=== PATIENT | female | born 1980 | race Caucasian/White ===

== ENCOUNTER 2018-04-19 12:59 | Day surgery (SDC) | payer BC ==
[~2018-04-19] VITALS: Ht 165.1 cm; Wt 103.0 kg
[~2018-04-19 12:59] MED LIST: ERGO500027 PO; HYDROmorphone 2 MG/ML VIAL IV PRN; IV RINGERS,LACTATED 1000ML 1,000 ML IV SCH; LACT1CAP8 PO; LIDOCAINE 1% PF 2 ML VIAL. ID PRN; METF500T16 PO; MORPHINE SULFATE 2 MG/ML VIAL. IV PRN; ONDANSETRON PF 4 MG/2 ML VIAL. IV PRN; PROCHLORPERAZINE 10 MG/2 ML VIAL. IV PRN; fentaNYL PF VIAL 100 MCG/2 ML VIAL IV PRN
[2018-04-19] MEDS ORDERED: ONDANSETRON PF 4 MG/2 ML VIAL. ONE (13:15)
[2018-04-19] MEDS ORDERED: fentaNYL PF VIAL 100 MCG/2 ML VIAL ONE (13:15)
[2018-04-19] MEDS ORDERED: DEXAMETHASONE SOD PHOS 20 MG/5 ML VIAL. ONE (13:15)
[2018-04-19] MEDS ORDERED: PROPOFOL 20 ML IV ONE ×2 (13:15→14:08)
[2018-04-19] MEDS ORDERED: MIDAZOLAM HCL/PF 2 MG/2 ML VIAL. ONE (13:16)
[2018-04-19] MEDS ORDERED: BUPIVAC MPF-EPI 0.5%-1:200000 30 ML VIAL. ONE (13:33)
[2018-04-19] MEDS ORDERED: ISOSULFAN BLUE 50 MG/5 ML VIAL. SQ ONE (13:33)
--- NOTE | 2018-04-19 14:27 | PDOC4 ---
Operative Note Operative Note Date: 04/19/2018 Preoperative diagnosis: Left axillary adenopathy Postoperative diagnosis: Same Procedure: Left axillary lymph node dissection Surgeon: Velasquez Specimen: Left axillary lymph nodes Dictation: Patient is a 37-year-old female who's noticed an enlarging mass in her left axilla ultrasound of this area showed multiple enlarged lymph nodes procedure of left axillary node dissection was explained to the patient detail was benefits were also discussed including bleeding infection alternatives to this procedure also discussed with patient seemed understanding gave both verbal and written consent had procedure performed. Patient was taken to the operating room placed in supine position general anesthesia was initiated once patient was asleep and intubated her left axilla was prepped and draped usual sterile fashion using ChloraPrep and area over the mass was injected with 0.25 percent Marcaine with epinephrine incisions made with 10 blade scalpel was carried down through the subcutaneous tissues elect cautery by hemostasis down into the axilla. 2 very large lymph nodes were encountered these were excised sharply with electrocautery and sent fresh to pathology. Wound was then closed in 2 layers a deep layer running 3-0 Vicryl and the skin was approximate 4 septic Monocryl Mastisol Steri-Strips and island dressing were applied. Patient was waken next made in the operating room taken recovery in stable condition all sponge instrument needle counts listed as correct estimated blood loss 5 mL NICKIE RUIZ MD Apr 19, 2018 14:27
--- NOTE | 2018-04-19 14:28 | DISCH ---
DISCHARGE INSTRUCTIONS Condition on Discharge Condition on Discharge: Stable Activity After Discharge Activity Instructions for Disc: Avoid exertion Diet after Discharge Diet after Discharge: Regular Wound Incision Care Other wound/incision instructi: May shower in 24 hours Contacting the after DC Call your doctor for: If your condition worsens Follow-Up Follow up with: Dr. Ruiz in 2 weeks NICKIE RUIZ MD Apr 19, 2018 14:28
[2018-04-19] MEDS: fentaNYL PF VIAL 100 MCG/2 ML VIAL IV PRN ×2 (15:09→15:25)
[2018-04-19] MEDS ORDERED: HYDROcodone/APAP 5/325MG 1 TAB TABLET PO ONE (15:15)
[2018-04-19 15:26] LABS: U PREG PATIENT NEGATIVE (NEG)
[2018-04-19] MEDS ORDERED: HYDR-971 PO (15:39)
[2018-04-19 16:00] VITALS: BP 166/81
--- NOTE | 2018-04-27 10:10 | PATHOLOGY ---
[facility] Accession Number: [id number] . 01 Material submitted: . PART A: FRESH- LEFT AXILLARY CONTENTS #1 PART B: FRESH- LEFT AXILLARY CONTENTS #2 . 01 Clinical history: . Axillary adenopathy . 02 Diagnosis: A. Lymph node and adipose tissue, left axillary contents #1: - Extensive fatty replacement and reactive changes of lymph node with focal anthracotic pigment deposition. . B. Lymph node and adipose tissue, left axillary contents #2: - Extensive fatty replacement and reactive changes of lymph node with focal anthracotic pigment deposition. . (JAYM:michelle; 04/20/2018) MBR/04/20/2018 . 02 Comment: Sections of the left axillary contents appear similar and reveal lymph nodes showing extensive fatty replacement. The remaining lymphoid parenchyma shows reactive changes. There are several scattered lymphoid follicles present within the cortex containing reactive germinal centers. There are foci of paracortical hyperplasia. There is focal sinus histiocytosis and anthracotic pigment deposition. . A portion of each lymph node is submitted together for lymphocyte marker studies by flow cytometry. . T-cells comprise 82% of lymphoid cells and show a CD4/CD8 ratio of 5.5. NK-cells comprise 1% of lymphoid cells. Mature B-cells comprise 16% of lymphoid cells and are polyclonal with a kappa:lambda ratio of 1.4. There is no flow immunophenotypic evidence of a B-cell or T-cell lymphoproliferative disorder. . The morphologic and immunophenotypic findings are supportive of the diagnosis of extensive fatty replacement and reactive changes of lymph node. There is no evidence of malignancy. (JAYM:michelle:[place]; 04/20/2018) . 02 Electronically signed: . Ector Mckenna MD, Pathologist NPI- [id number] . 01 Gross description: . A. Received fresh, labeled, "Ellen Thompson - Left axillary contents #1" is an elongated segment of yellow-red fatty tissue measuring up to 5.0 x 2.0 x 1.0 cm in greatest dimension. Sectioning reveals an eccentrically-located pale yellowish-kinsey rubbery lymph node measuring up to 2.0 cm in greatest dimension. Sectioning shows partial fatty replacement of lymph node with a focal rim of lymph node parenchyma showing mota-black anthracotic pigmentation. Two Touch Preps are prepared and submitted for H and E staining. A herbicide service sales representative portion of the node is submitted in RPMI for lymphocyte marker studies by flow cytometry. The remainder of the lymph node is submitted for microscopy as A1 and A2. . B. Received fresh, labeled, "Parkerchot Ellen - Left axillary contents #2" is a segment of yellow-red fatty tissue measuring up to 2.5 x 2.5 x 1.1 cm. The specimen is serially sectioned. Sectioning reveals a partially fatty replaced pale yellow-kinsey lymph node with a focal rim of lymph node parenchyma showing mota-black anthracotic pigmentation. This lymph node appears to measure up to approximately 1.3 cm in greatest dimension. Two Touch Preparations are prepared and submitted for H and E staining. A herbicide service sales representative portion of lymph node is submitted together with a portion of lymph node from specimen A for lymphocyte marker studies by flow cytometry. The remainder of the lymph node is submitted for microscopy as B1 and B2. . (JPM:mml; 04/19/18) SHS/SHS . 02 Pathologist provided ICD-10: R59.0 . 02 CPT . 400755, 353714 Specimen Comment: A courtesy copy of this report has been sent to Specimen Comment: [phone], . Specimen Comment: Report sent to / DR ANNE Specimen Comment: A duplicate report has been generated due to demographic updates. Performed at: 01 [facility] [address], [place] [id number] MD Kwesi Chris MD Phone: [phone] Performed at: 02 [facility] [address] [place], [place] [id number] MD Ector Mckenna MD Phone: [phone]
== END 2018-04-19 16:26 | disposition home or self-care (01) ==
LOC: SURG 12:59
PROVIDERS: ATTEND Surgery
DX: R59.0 Localized enlarged lymph nodes (principal); E78.00 Pure hypercholesterolemia, unspecified; F31.9 Bipolar disorder, unspecified; Z87.891 Personal history of nicotine dependence; Z98.890 Other specified postprocedural states; Z98.51 Tubal ligation status; Z79.899 Other long term (current) drug therapy
CPT/HCPCS: 38525; 81025; 88184; 88185; 88305; A7015; J0690; J1100; J2250; J2405; J2704; J3010; J3490; Q9968

== ENCOUNTER 2018-09-15 09:16 | Emergency (ER) | payer BC ==
[~2018-09-15] VITALS: Ht 165.1 cm; Wt 108.9 kg
[~2018-09-15 09:16] MED LIST changes: +HYDR-3164 PO; -HYDROmorphone 2 MG/ML VIAL IV PRN; -IV RINGERS,LACTATED 1000ML 1,000 ML IV SCH; -LIDOCAINE 1% PF 2 ML VIAL. ID PRN; -MORPHINE SULFATE 2 MG/ML VIAL. IV PRN; -ONDANSETRON PF 4 MG/2 ML VIAL. IV PRN; -PROCHLORPERAZINE 10 MG/2 ML VIAL. IV PRN; -fentaNYL PF VIAL 100 MCG/2 ML VIAL IV PRN
--- NOTE | 2018-09-15 09:37 | PHYS DOC ---
Past Medical History Past Medical History: Other Additional Past Medical Histor: PCOS Past Surgical History: Appendectomy, Hysterectomy, Tonsillectomy, Other Additional Past Surgical Histo: lymphnodectomy, Alcohol Use: Occasionally Drug Use: None Adult General Chief Complaint Chief Complaint: ABDOMINAL PAIN HPI HPI Patient is a 38 year old female with no significant medical history who presents to the ED today complaining of right upper quadrant abdominal pain rated at 8 out of 10 described as burning and intermittent that has been going on for the last 2 months. Patient states she was seen by the PCP at the beginning of August, she states they did an ultrasound which showed she had gallstones, she states they made a referral to general surgery, patient states she's not heard anything from general surgery for the last 2 weeks, she states she called Gen. surgery's office today and they sent her to the ED. Patient denies any nausea vomiting. Denies any chance is . Review of Systems Review of Systems Constitutional: Denies fever or chills [] Eyes: Denies change in visual acuity, redness, or eye pain [] HENT: Denies nasal congestion or sore throat [] Respiratory: Denies cough or shortness of breath [] Cardiovascular: No additional information not addressed in HPI [] GI: Reports right upper quadrant abdominal pain, denies nausea, vomiting, bloody stools or diarrhea [] : Denies dysuria or hematuria [] Musculoskeletal: Denies back pain or joint pain [] Integument: Denies rash or skin lesions [] Neurologic: Denies headache, focal weakness or sensory changes [] All other systems were reviewed and found to be within normal limits, except as documented in this note. Current Medications Current Medications Current Medications Medications (Trade) Dose Ordered Sig/Minnie Start Time Stop Time Status Last Admin Dose Admin Fentanyl Citrate (Fentanyl 2ml Vial) 50 mcg 1X ONCE 09/15/18 10:30 09/15/18 10:31 DC 09/15/18 09:58 50 MCG Ondansetron HCl (Zofran) 4 mg 1X ONCE 09/15/18 10:30 09/15/18 10:31 DC 09/15/18 09:57 4 MG Sodium Chloride 1,000 ml @ 1,000 mls/hr 1X ONCE 09/15/18 10:30 09/15/18 11:29 09/15/18 09:57 1,000 MLS/HR Allergies Allergies Allergies Coded Allergies Type Severity Reaction Last Updated Verified No Known Drug Allergies 04/19/18 No Physical Exam Physical Exam Constitutional: Well developed, well nourished, no acute distress, non-toxic appearance. [] HENT: Normocephalic, atraumatic, bilateral external ears normal, oropharynx moist, no oral exudates, nose normal. [] Eyes: PERRLA, EOMI, conjunctiva normal, no discharge. [] Neck: Normal range of motion, no tenderness, supple, no stridor. [] Cardiovascular:Heart rate regular rhythm, no murmur [] Lungs & Thorax: Bilateral breath sounds clear to auscultation [] Abdomen: Bowel sounds normal, soft, mild tenderness in the right upper quadrant with positive Harrell sign, no right lower quadrant tenderness, no guarding, no rebound pain or tenderness no masses, no pulsatile masses. [] Skin: Warm, dry, no erythema, no rash. [] Back: No tenderness, no CVA tenderness. [] Extremities: No tenderness, no cyanosis, no clubbing, ROM intact, no edema. [] Neurologic: Alert and oriented X 3, normal motor function, normal sensory function, no focal deficits noted. [] Psychologic: Affect normal, judgement normal, mood normal. [] Current Patient Data Vital Signs Vital Signs Date Time Temp Pulse Resp B/P (MAP) Pulse Ox O2 Delivery O2 Flow Rate FiO2 09/15/18 09:29 98.1 76 18 145/86 (105) 98 Room Air 98.1 Lab Values Laboratory Tests Test 09/15/18 09:44 09/15/18 09:48 White Blood Count 8.0 x10^3/uL (4.0-11.0) Red Blood Count 4.62 x10^6/uL (3.50-5.40) Hemoglobin 14.2 g/dL (12.0-15.5) Hematocrit 42.0 % (36.0-47.0) Mean Corpuscular Volume 91 fL (79-100) Mean Corpuscular Hemoglobin 31 pg (25-35) Mean Corpuscular Hemoglobin Concent 34 g/dL (31-37) Red Cell Distribution Width 13.2 % (11.5-14.5) Platelet Count 270 x10^3/uL (140-400) Neutrophils (%) (Auto) 67 % (31-73) Lymphocytes (%) (Auto) 25 % (24-48) Monocytes (%) (Auto) 7 % (0-9) Eosinophils (%) (Auto) 1 % (0-3) Basophils (%) (Auto) 1 % (0-3) Neutrophils # (Auto) 5.4 x10^3uL (1.8-7.7) Lymphocytes # (Auto) 2.0 x10^3/uL (1.0-4.8) Monocytes # (Auto) 0.5 x10^3/uL (0.0-1.1) Eosinophils # (Auto) 0.0 x10^3/uL (0.0-0.7) Basophils # (Auto) 0.1 x10^3/uL (0.0-0.2) Prothrombin Time 12.3 SEC (11.7-14.0) Prothrombin Time INR 0.9 (0.8-1.1) PTT 27 SEC (24-38) Sodium Level 139 mmol/L (136-145) Potassium Level 4.0 mmol/L (3.5-5.1) Chloride Level 101 mmol/L (98-107) Carbon Dioxide Level 26 mmol/L (21-32) Anion Gap 12 (6-14) Blood Urea Nitrogen 8 mg/dL (7-20) Creatinine 0.7 mg/dL (0.6-1.0) Estimated GFR (Cockcroft-Gault) 93.2 BUN/Creatinine Ratio 11 (6-20) Glucose Level 139 mg/dL (70-99) H Calcium Level 9.5 mg/dL (8.5-10.1) Total Bilirubin 0.2 mg/dL (0.2-1.0) Aspartate Amino Transferase (AST) 36 U/L (15-37) Alanine Aminotransferase (ALT) 41 U/L (14-59) Alkaline Phosphatase 64 U/L (46-116) Total Protein 8.2 g/dL (6.4-8.2) Albumin 3.8 g/dL (3.4-5.0) Albumin/Globulin Ratio 0.9 (1.0-1.7) L Lipase 120 U/L (73-393) Ethyl Alcohol Level < 10 mg/dL (0-10) Urine Collection Type Unknown Urine Color Yellow Urine Clarity Clear Urine pH 6.5 Urine Specific [place] 1.010 Urine Protein Negative mg/dL (NEG-TRACE) Urine Glucose (UA) 100 mg/dL (NEG) Urine Ketones (Stick) Negative mg/dL (NEG) Urine Blood Negative (NEG) Urine Nitrite Negative (NEG) Urine Bilirubin Negative (NEG) Urine Urobilinogen Dipstick 0.2 mg/dL (0.2 mg/dL) Urine Leukocyte Esterase Negative (NEG) Urine RBC 0 /HPF (0-2) Urine WBC 0 /HPF (0-4) Urine Squamous Epithelial Cells Few /LPF Urine Bacteria 0 /HPF (0-FEW) Urine Opiates Screen Neg (NEG) Urine Methadone Screen Neg (NEG) Urine Barbiturates Neg (NEG) Urine Phencyclidine Screen Neg (NEG) Urine Amphetamine/Methamphetamine Neg (NEG) Urine Benzodiazepines Screen Neg (NEG) Urine Cocaine Screen Neg (NEG) Urine Cannabinoids Screen Neg (NEG) Urine Ethyl Alcohol Neg (NEG) Laboratory Tests 09/15/18 09:44 Laboratory Tests 09/15/18 09:44 EKG EKG [] Radiology/Procedures Radiology/Procedures []PROCEDURE: ABDOMEN LTD ABDOMEN LTD History: Right upper quadrant pain, history of gallstones Comparison: None. Findings: Multiple sonographic images of the abdomen are submitted. There is no abnormality of the visualized pancreas. Gallbladder is present, several echogenic shadowing foci in the lumen. There is no gallbladder wall thickening or pericholecystic fluid. There is segmental visualization of the inferior vena cava. Right kidney measured 11 x 6 x 4.5 cm, no hydronephrosis. There is diffuse coarsening of the hepatic echotexture. Right lobe of the liver measured 17.1 cm longitudinal. Common bile duct is upper limits of normal 0.6 cm. Impression: 1. There is cholelithiasis, no significant pericholecystic fluid or gallbladder wall thickening. 2. There is hepatic steatosis. Electronically signed by: Adriane Kay MD (09/15/2018 10:41 AM) [id number] DICTATED and SIGNED BY: ADRIANE KAY MD DATE: 09/15/18 1041 Course & Med Decision Making Course & Med Decision Making Pertinent Labs and Imaging studies reviewed. (See chart for details) This is a 38-year-old female patient presented to the ED today with right upper quadrant abdominal pain for 2 months. Patient was seen by the PCP around August 12 , they did an ultrasound which showed gallstones. She's been waiting for 2 weeks to get a call from general surgery, she called him today, they requested she comes to the ED. Patient's labs including AST and ALT have no acute findings, abdominal ultrasound was noted for cholelithiasis no cholecystitis Patient is a febrile. Pain is well controlled. Discharged with hydrocodone for pain. Provided general surgery number and instructed to call the office today and get an appointment. Dragon Disclaimer Dragon Disclaimer This electronic medical record was generated, in whole or in part, using a voice recognition dictation system. Departure Departure Impression: Primary Impression: Cholelithiasis Disposition: HOME, SELF-CARE Condition: STABLE Referrals: NAME,WHITNEY WAGNER (PCP) NICKIE RUIZ MD Call his office today and set up a follow-up appointment Patient Instructions: Cholelithiasis, [id number] Additional Instructions: You were elected in the emergency room for cholelithiasis. Please contact the general surgeon provided and set up a follow-up appointment with them as soon as possible. Take the prescribed medicine as needed for pain. Watch your diet, avoid greasy fatty foods. Avoid spicy foods. Please return to the Ed if symptoms worsen. Scripts Ondansetron (ONDANSETRON ODT) 4 Mg Tab.rapdis 1 TAB PO PRN Q6-8HRS, #16 TAB Prov: REJI RUANO APRN 09/15/18 Hydrocodone/Apap 5-325 (NORCO 5-325 TABLET) 1 Each Tablet 1 TAB PO Q6-8HRS PRN for PAIN, #30 TAB Prov: REJI RUANO APRN 09/15/18 Problem Qualifiers Primary Impression: Cholelithiasis Cholelithiasis location: gallbladder Cholecystitis presence: without cholecystitis Biliary obstruction: without biliary obstruction Qualified Codes: K80.20 - Calculus of gallbladder without cholecystitis without obstruction REJI RUANO APRN Sep 15, 2018 09:37
[2018-09-15 09:57] LABS: BASO # 0.1 x10^3/uL (0.0-0.2); BASO % 1 % (0-3); EOS % 1 % (0-3); HEMOGLOBIN 14.2 g/dL (12.0-15.5); LYMPH % 25 % (24-48); MEAN CORPUSCULAR HEMOGLOBIN 31 pg (25-35); MEAN CORPUSCULAR HGB CONC 34 g/dL (31-37); MEAN CORPUSCULAR VOLUME 91 fL (79-100); MONO # 0.5 x10^3/uL (0.0-1.1); MONO % 7 % (0-9); NEUT # 5.4 x10^3uL (1.8-7.7); NEUT % 67 % (31-73); PLATELET COUNT 270 x10^3/uL (140-400); RED BLOOD COUNT 4.62 x10^6/uL (3.50-5.40); RED CELL DISTRIBUTION WIDTH 13.2 % (11.5-14.5)
[2018-09-15 10:06] LABS: PROTHROMBIN TIME PATIENT 12.3 SEC (11.7-14.0)
[2018-09-15 10:08] LABS: BILIRUBIN,URINE NEGATIVE (NEG); CLARITY,URINE CLEAR; COLOR,URINE YELLOW; NITRITE,URINE NEGATIVE (NEG); PH,URINE 6.5; PROTEIN,URINE NEGATIVE (NEG-TRACE); UROBILINOGEN,URINE 0.2 mg/dL (0.2 mg/dL)
[2018-09-15 10:13] LABS: CALCIUM 9.5 mg/dL (8.5-10.1); CREATININE 0.7 mg/dL (0.6-1.0); GFR 93.2
[2018-09-15 10:14] LABS: BACTERIA,URINE 0 /HPF (0-FEW); RBC,URINE 0 /HPF (0-2); SQUAMOUS EPITHELIAL CELL,UR FEW /LPF; WBC,URINE 0 /HPF (0-4)
[2018-09-15 10:16] LABS: BARBITURATES NEG (NEG); BENZODIAZEPINES NEG (NEG); CANNABINOIDS NEG (NEG); COCAINE NEG (NEG); METHADONE NEG (NEG); OPIATES NEG (NEG); PHENCYCLIDINE NEG (NEG)
[2018-09-15 10:17] LABS: AMPHETAMINE/METHAMPHETAMINE NEG (NEG)
[2018-09-15 10:20] LABS: ALBUMIN 3.8 g/dL (3.4-5.0); ALBUMIN/GLOBULIN RATIO 0.9 (1.0-1.7); TOTAL BILIRUBIN 0.2 mg/dL (0.2-1.0); TOTAL PROTEIN 8.2 g/dL (6.4-8.2)
[2018-09-15] MEDS ORDERED: ONDANSETRON PF 4 MG/2 ML VIAL. IV ONE (10:30)
[2018-09-15] MEDS ORDERED: fentaNYL PF VIAL 100 MCG/2 ML VIAL IV ONE (10:30)
[2018-09-15] MEDS ORDERED: IV NORMAL SALINE 1000ML BAG 1,000 ML IV ONE (10:30)
--- NOTE | 2018-09-15 10:44 | RAD ---
ABDOMEN LTD History: Right upper quadrant pain, history of gallstones Comparison: None. Findings: Multiple sonographic images of the abdomen are submitted. There is no abnormality of the visualized pancreas. Gallbladder is present, several echogenic shadowing foci in the lumen. There is no gallbladder wall thickening or pericholecystic fluid. There is segmental visualization of the inferior vena cava. Right kidney measured 11 x 6 x 4.5 cm, no hydronephrosis. There is diffuse coarsening of the hepatic echotexture. Right lobe of the liver measured 17.1 cm longitudinal. Common bile duct is upper limits of normal 0.6 cm. Impression: 1. There is cholelithiasis, no significant pericholecystic fluid or gallbladder wall thickening. 2. There is hepatic steatosis. Electronically signed by: Irineo Hale MD (09/15/2018 10:41 AM) [id number]
[2018-09-15] MEDS ORDERED: HYDR-3164 PO (11:01)
[2018-09-15] MEDS ORDERED: ONDA4TAB12 PO (11:01)
[2018-09-15 11:30] VITALS: BP 123/82
[2018-09-22] MEDS ORDERED: DEXL60CA2 PO (13:21)
== END 2018-09-15 11:36 | disposition home or self-care (01) ==
LOC: ER 09:16
DX: K80.20 Calculus of gallbladder without cholecystitis without obstruction (principal); K76.0 Fatty (change of) liver, not elsewhere classified; Z90.89 Acquired absence of other organs; Z90.710 Acquired absence of both cervix and uterus
CPT/HCPCS: 36415; 76705; 80053; 80307; 81001; 83690; 85025; 85610; 85730; 96374; 96375; 99284; G0480; J2405; J3010; J7030

== ENCOUNTER 2018-09-23 08:18 | Day surgery (SDC) | payer BC ==
[~2018-09-23] VITALS: Ht 165.1 cm; Wt 108.0 kg
[~2018-09-23 08:18] MED LIST changes: +DEXAMETHASONE SOD PHOS 20 MG/5 ML VIAL. ONE; +DEXL60CA2 PO; +GLYCOPYRROLATE 1 MG/5 ML VIAL. ONE; +HYDROmorphone 2 MG/ML VIAL IV PRN; +IV RINGERS,LACTATED 1000ML 1,000 ML IV SCH; +LIDOCAINE 1% PF 2 ML VIAL. ID PRN; +LIDOCAINE 2% PF 5 ML VIAL. ONE; +MIDAZOLAM HCL/PF 2 MG/2 ML VIAL. ONE; +MORPHINE SULFATE 2 MG/ML VIAL. IV PRN; +NEOSTIGMINE METHYLSULFATE 5 MG/5 ML SYRINGE. ONE; +ONDA4TAB12 PO; +ONDANSETRON PF 4 MG/2 ML VIAL. IV PRN; +ONDANSETRON PF 4 MG/2 ML VIAL. ONE; +PROCHLORPERAZINE 10 MG/2 ML VIAL. IV PRN; +PROPOFOL 20 ML IV ONE; +ROCURONIUM 50 MG/5 ML VIAL. ONE; +SEVOFLURANE 61 TO 120 MINUTES. IH ONE; +ceFAZolin 2GM PREMIX 2 GM/50 ML BAG IV ONE; +fentaNYL PF VIAL 100 MCG/2 ML VIAL IV PRN; +fentaNYL PF VIAL 100 MCG/2 ML VIAL ONE
[2018-09-23] MEDS ORDERED: IOHEXOL 300 MG/ML 100ML VIAL. ONE (08:29)
[2018-09-23] MEDS ORDERED: SURGICEL HEMOSTAT 4X8 EACH. ONE (08:29)
[2018-09-23] MEDS ORDERED: BUPIVAC MPF-EPI 0.5%-1:200000 30 ML VIAL. ONE (08:29)
--- NOTE | 2018-09-23 10:40 | PDOC4 ---
Operative Note Operative Note Date: 09/23/2018 Preoperative diagnosis: Chronic cholecystitis Postoperative diagnosis: Same Procedure: Laparoscopic cholecystectomy Surgeon: Velasquez Specimen: Gallbladder Dictation: Patient is 38-year-old female has had right upper quadrant abdominal pain postprandial nausea and an ultrasound showing gallstones procedure of laparoscopic cholecystectomy was explained to the patient in detail all risks benefits were also discussed including bleeding infection injury to intra- abdominal contents possibly necessitating further or open operations alternatives to this procedure also discussed with the patient who seemed to understand and gave both verbal and written consent to have the procedure performed. Patient was taken to the operating room placed in supine position general anesthesia was initiated once patient was sleep and intubated her abdomen was prepped and draped usual sterile fashion using ChloraPrep. An area at the umbilicus was injected with quarter percent Marcaine with epinephrine incision was made [place] blade scalpel varies needle was placed within the abdomen creating pneumoperitoneum once this was complete a11 mm port was placed and a 5 mm camera was placed within the abdomen which was inspected no other abnormalities were noted a 5 mm port was then placed in the epigastrium a 5 mm port was placed in the right lateral abdomen and one in the right mid abdomen the dome of the gallbladder is grasped and retracted cephalad the infundibulum of the gallbladder is grasped retracted laterally exposing the triangle adherent tissues of the triangle were taken down exposing the cystic duct and cystic artery both were doubly clipped and transected the gallbladder was taken off the liver with a clot cautery placed in Endo Catch bag and removed from the umbilicus right upper quadrant was irrigated and suctioned dry hemostasis deemed to be appropriate and the pneumoperitoneum was reduced all ports removed the fascial defect at the umbilicus was closed with [id number] 0 Vicryl suture and skin was approximated all port sites with 40 septic and a Monocryl Mastisol Steri-Strips and island dressings were applied. Patient was awakened and extubated in the operating room taken to recovery in stable condition all sponge instrument needle counts listed as correct S medical blood loss 5 mL NICKIE RUIZ MD Sep 23, 2018 10:40
--- NOTE | 2018-09-23 10:44 | DISCH ---
DISCHARGE INSTRUCTIONS Condition on Discharge Condition on Discharge: Stable Activity After Discharge Activity Instructions for Disc: Avoid exertion Other activity instructions: no lifting more than 20 pounds for 2 weeks Diet after Discharge Diet after Discharge: Low Fat Wound Incision Care Other wound/incision instructi: May shower in 24 hours Contacting the after DC Call your doctor for: If your condition worsens Follow-Up Follow up with: Dr. Ruiz in 2 weeks NICKIE RUIZ MD Sep 23, 2018 10:44
[2018-09-23] MEDS ORDERED: OXYC1TAB15 PO (10:45)
[2018-09-23] MEDS ORDERED: oxyCODONE/APAP 5/325 1 TAB TABLET PO ONE ×2 (11:00)
[2018-09-23] MEDS ORDERED: fentaNYL PF VIAL 100 MCG/2 ML VIAL ONE (11:02)
[2018-09-23 11:45] VITALS: BP 122/66
--- NOTE | 2018-09-27 15:06 | PATHOLOGY ---
[facility] Accession Number: [id number] . 01 Material submitted: . gallbladder - GALLBLADDER . 01 Clinician provided ICD-10: n . 01 Clinical history: . Cholelithiasis . 02 Diagnosis: Gallbladder, cholecystectomy: - Cholelithiasis. - Chronic cholecystitis. - Reactive changes of pericystic duct lymph node. (JPM:mainframe systems programmer; 09/26/2018) MBR/09/26/2018 . 02 Comment: There is no evidence of malignancy. (JPM:mainframe systems programmer; 09/26/2018) . 02 Electronically signed: . Ector Mckenna MD, Pathologist NPI- [id number] . 01 Gross description: . The specimen is received in formalin, labeled "Sahra, Ellen, gallbladder", is an intact, distended gallbladder measuring 9.2 x 3.2 x 2.7 cm with purple-green, glistening serosa. A kinsey-pink, rubbery lymph node is present measuring 0.9 x 0.6 x 0.4 cm. The lumen is filled with yellow-green viscous bile admixed with dark brown-green, multifaceted calculi and its fragments measuring 2.3 x 1.7 x 1.0 cm in aggregate. The mucosa is kinsey-brown, granular and the wall has an average thickness of 0.1 cm. No discrete masses are identified. Lump Machine Operator tissue is submitted in A1. ([facility]; 09/23/2018) SHS/SHS . 02 Pathologist provided ICD-10: K80.10 . 02 CPT . 038931 Specimen Comment: A courtesy copy of this report has been sent to Specimen Comment: [phone], . Specimen Comment: Report sent to / DR NAME Performed at: 01 [facility] [address], [place] [id number] MD Kwesi Chris MD Phone: [phone] Performed at: 02 [facility] [address] [place], [place] [id number] MD Ector Mckenna MD Phone: [phone]
== END 2018-09-23 12:00 | disposition home or self-care (01) ==
LOC: SURG 08:18
PROVIDERS: ATTEND Surgery
DX: K80.10 Calculus of gallbladder with chronic cholecystitis without obstruction (principal); E78.00 Pure hypercholesterolemia, unspecified; F31.9 Bipolar disorder, unspecified; F98.8 Other specified behavioral and emotional disorders with onset usually occurring in childhood and adolescence; Z79.84 Long term (current) use of oral hypoglycemic drugs; Z79.899 Other long term (current) drug therapy; Z90.49 Acquired absence of other specified parts of digestive tract; Z98.51 Tubal ligation status; Z98.890 Other specified postprocedural states; Z90.710 Acquired absence of both cervix and uterus; Z80.0 Family history of malignant neoplasm of digestive organs; Z87.891 Personal history of nicotine dependence; Z72.89 Other problems related to lifestyle
CPT/HCPCS: 47562; 88304; A7015; J0696; J0780; J1100; J2001; J2250; J2405; J2704; J2710; J3010; J3490; J7030; J7120; Q9967

== ENCOUNTER → 2020-10-25 | Outpatient (CLI) | payer OTHER ==
[2020-09-07 19:00] VITALS: BP 117/73
[~2020-10-25] MED LIST changes: -DEXAMETHASONE SOD PHOS 20 MG/5 ML VIAL. ONE; -GLYCOPYRROLATE 1 MG/5 ML VIAL. ONE; -HYDROmorphone 2 MG/ML VIAL IV PRN; -IV RINGERS,LACTATED 1000ML 1,000 ML IV SCH; -LIDOCAINE 1% PF 2 ML VIAL. ID PRN; -LIDOCAINE 2% PF 5 ML VIAL. ONE; -MIDAZOLAM HCL/PF 2 MG/2 ML VIAL. ONE; -MORPHINE SULFATE 2 MG/ML VIAL. IV PRN; -NEOSTIGMINE METHYLSULFATE 5 MG/5 ML SYRINGE. ONE; -ONDANSETRON PF 4 MG/2 ML VIAL. IV PRN; -ONDANSETRON PF 4 MG/2 ML VIAL. ONE; +OXYC1TAB15 PO; -PROCHLORPERAZINE 10 MG/2 ML VIAL. IV PRN; -PROPOFOL 20 ML IV ONE; -ROCURONIUM 50 MG/5 ML VIAL. ONE; -SEVOFLURANE 61 TO 120 MINUTES. IH ONE; -ceFAZolin 2GM PREMIX 2 GM/50 ML BAG IV ONE; -fentaNYL PF VIAL 100 MCG/2 ML VIAL IV PRN; -fentaNYL PF VIAL 100 MCG/2 ML VIAL ONE
--- NOTE | 2020-10-25 16:49 | CARD ---
MR#: [id number] Date of Study: 10/25/2020 Ordering Physician: ETHAN DIAL, Referring Physician: ETHAN DIAL, Tech: Eleanor Teixeira [facility] APPROVED REPORT EXAM: Two-dimensional and M-mode echocardiogram with Doppler and color Doppler. Other Information Quality : Technically LimitedHR: 88bpm Rhythm : NSRTechnically limited study due to body habitus. INDICATION COPD Dyspnea RISK FACTORS Obesity 2D DIMENSIONS RVDd2.2 (2.9-3.5cm)Left Atrium(2D)3.2 (1.6-4.0cm) IVSd1.0 (0.7-1.1cm)Aortic Root(2D)3.0 (2.0-3.7cm) LVDd4.1 (3.9-5.9cm)LVOT Diameter2.2 (1.8-2.4cm) PWd1.0 (0.7-1.1cm)LVDs2.7 (2.5-4.0cm) FS (%) 34.2 %SV48.2 ml LVEF(%)63.7 (>50%) Aortic Valve AoV Peak Paul.113.8cm/sAoV VTI20.7cm AO Peak GR.5.2mmHgLVOT Peak Paul.77.3cm/s AO Mean GR.3mmHgAVA (VMAX)2.50cm2 Mitral Valve MV E Ebgppakr15.3cm/sMV DECEL YCSP427de MV A Bkyexjkk04.1cm/sE/A Ratio0.9 Tricuspid Valve TR P. Yksaviiq134zt/sTR Peak Gr.26mmHg LEFT VENTRICLE The left ventricle is normal size. There is normal left ventricular wall thickness. The left ventricu lar systolic function is normal and the ejection fraction is within normal range. Estimated ejection fraction 60-65%. There is normal LV segmental wall motion. Tissue Doppler imaging reveals mild left v entricular diastolic dysfunction. RIGHT VENTRICLE The right ventricle is normal size. There is normal right ventricular wall thickness. The right ventr icular systolic function is normal. ATRIA The left atrium size is normal. The right atrium size is normal. The interatrial septum is intact wit h no evidence for an atrial septal defect or patent foramen ovale as noted on 2-D or Doppler imaging. AORTIC VALVE The aortic valve is normal in structure and function. Doppler and Color Flow revealed no significant aortic regurgitation. There is no significant aortic valvular stenosis. MITRAL VALVE The mitral valve is normal in structure and function. There is no evidence of mitral valve prolapse. There is no mitral valve stenosis. Doppler and Color Flow revealed no mitral valve regurgitation note d. TRICUSPID VALVE The tricuspid valve is normal in structure and function. Doppler and Color Flow revealed no tricuspid valve regurgitation noted. There is no tricuspid valve stenosis. PULMONIC VALVE Doppler and Color Flow revealed no pulmonic valvular regurgitation. There is no pulmonic valvular mary ellen nosis. GREAT VESSELS The aortic root is normal in size. The ascending aorta is normal in size. The IVC was not visualized. PERICARDIAL EFFUSION There is no evidence of significant pericardial effusion. Critical Notification Critical Value: No <Conclusion> The left ventricular systolic function is normal and the ejection fraction is within normal range. E stimated ejection fraction 60-65%. There is normal LV segmental wall motion. Technically difficult study. Signed by : Jarvis Hoskins, Electronically Approved : 10/25/2020 16:48:52
== END ==
LOC: ECHO 14:32
PROVIDERS: ATTEND Internal Medicine Cardiovascular Disease
DX: R06.02 Shortness of breath (principal); J44.9 Chronic obstructive pulmonary disease, unspecified
CPT/HCPCS: 93306

== ENCOUNTER → 2020-12-25 | Outpatient (CLI) | payer OTHER ==
[2020-09-07 19:00] VITALS: BP 117/73
--- NOTE | 2020-12-27 16:33 | RESP ---
DATE OF SERVICE: 12/25/2020 ATTENDING PHYSICIAN: Sukhjinder Fowler MD The patient underwent full PFTs dated 12/25/2020. The FEV1 to FVC ratio is 92%. FEV1 was decreased to 74% of predicted, 2.28 liters. FVC was likewise decreased at 65% of predicted, 2.46 liters. There was no significant bronchodilator response. Total lung capacity was decreased to 81%. Diffusion capacity was decreased to 72%. IMPRESSION: 1. Mild restrictive disorder. 2. Decreased diffusion capacity. 3. No significant bronchodilator response. CRISTINA DR: Al TID: [id number] CC: JOSHUA CHRISTIANSON MD
== END ==
LOC: PF 10:58
PROVIDERS: ATTEND Internal Medicine Pulmonary Disease
DX: J98.4 Other disorders of lung (principal); R06.02 Shortness of breath
CPT/HCPCS: 94060; 94640; 94726; 94729; 94664

== ENCOUNTER → 2021-03-20 | Outpatient (CLI) | payer OTHER ==
[2020-09-07 19:00] VITALS: BP 117/73
--- NOTE | 2021-03-20 13:24 | CARD ---
MR#: [id number] Date of Study: 03/20/2021 Ordering Physician: ETHAN DIAL, Referring Physician: ETHAN DIAL, Tech: Andrew Lester [facility] APPROVED REPORT EXAM: Two-dimensional and M-mode echocardiogram with Doppler and color Doppler. Other Information Quality : FairHR: 106bpm Rhythm : TachycardiaTechnically limited study due to body habitus and smoking and Covid pneumonia INDICATION Dyspnea RISK FACTORS Obesity Smoking Previous Covid patient. 2D DIMENSIONS Left Atrium(2D)3.7 (1.6-4.0cm)IVSd1.2 (0.7-1.1cm) Aortic Root(2D)3.6 (2.0-3.7cm)LVDd4.0 (3.9-5.9cm) LVOT Diameter2.3 (1.8-2.4cm)PWd1.2 (0.7-1.1cm) LVDs2.2 (2.5-4.0cm)FS (%) 45.0 % SV52.7 mlLVEF(%)76.9 (>50%) Aortic Valve AoV Peak Paul.137.0cm/sAoV VTI23.3cm AO Peak GR.7.5mmHgLVOT Peak Paul.110.1cm/s AO Mean GR.4mmHgAVA (VMAX)3.28cm2 Mitral Valve MV E Gfzpztbe26.7cm/sMV E Peak Gr.3mmHg MV DECEL HLOW375roAK A Gisuzxnc015.8cm/s MV E Mean Gr.1mmHgE/A Ratio0.6 Pulmonary Valve PV Peak Jueulymb88.0cm/s Tricuspid Valve TR P. [id number]/sTR Peak Gr.29mmHg Pulmonary Vein S1 Gwuwwtge82.9cm/sD2 Ocztbazl73.7cm/s LEFT VENTRICLE The left ventricle is normal size. There is borderline concentric left ventricular hypertrophy. The l eft ventricular systolic function is normal and the ejection fraction is within normal range. EF 55% There is normal LV segmental wall motion. Transmitral Doppler flow pattern is Grade I-abnormal relaxa tion pattern. No left ventricle thrombus noted on this study. There is no ventricular septal defect v isualized. There is no left ventricular aneurysm. There is no mass noted in the left ventricle. RIGHT VENTRICLE The right ventricle is normal size. There is normal right ventricular wall thickness. The right ventr icular systolic function is normal. ATRIA The left atrium is borderline dilated. The right atrium size is normal. The interatrial septum is int act with no evidence for an atrial septal defect or patent foramen ovale as noted on 2-D or Doppler i maging. AORTIC VALVE Aortic valve is not well visualized. Doppler and Color Flow revealed no significant aortic regurgitat ion. There is no significant aortic valvular stenosis. There is no aortic valvular vegetation. MITRAL VALVE The mitral valve is normal in structure and function. There is no evidence of mitral valve prolapse. There is no mitral valve stenosis. Doppler and Color-flow revealed trace to mild mitral regurgitation . TRICUSPID VALVE The tricuspid valve is normal in structure and function. Doppler and Color Flow revealed trace tricus pid regurgitation. There is no tricuspid valve prolapse or vegetation. There is no tricuspid valve st enosis. PULMONIC VALVE Pulmonic valve is not well seen. Doppler and Color Flow revealed no pulmonic valvular regurgitation. There is no pulmonic valvular stenosis. GREAT VESSELS The aortic root is mildly dilated at 4.0 cm. The ascending aorta is not well seen but appears mildly dilated. The IVC is normal in size and collapses >50% with inspiration. PERICARDIAL EFFUSION There is no pleural effusion. There is no evidence of significant pericardial effusion. Critical Notification Critical Value: No <Conclusion> The left ventricular systolic function is normal and the ejection fraction is within normal range. EF 55% There is normal LV segmental wall motion. The aortic root is mildly dilated at 4.0 cm. The ascending aorta is not well seen but appears mildly dilated. Technically difficult study. Signed by : Jarvis Hoskins, Electronically Approved : 03/20/2021 13:23:33
== END ==
LOC: ECHO 10:23
PROVIDERS: ATTEND Internal Medicine Cardiovascular Disease
DX: I34.0 Nonrheumatic mitral (valve) insufficiency (principal); I51.7 Cardiomegaly; R06.02 Shortness of breath
CPT/HCPCS: 93306